=== PATIENT | male | born 1980 | race Caucasian/White ===

== ENCOUNTER 2022-10-15 08:23 | Outpatient (RCR) | payer OTHER, SELFPAY ==
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
--- NOTE | 2022-10-23 16:09 | HP.OTFCE.D ---
FCE D/C Summary - Discharge IVORY MARSHALL was seen for a one time visit for an FCE on 10/15/22 and is discharged.
== END 2022-10-15 19:00 | disposition home or self-care (01) ==
LOC: OT 08:23
DX: M77.11 Lateral epicondylitis, right elbow (principal); M77.12 Lateral epicondylitis, left elbow
CPT/HCPCS: 97750